=== PATIENT | male | born 2000 | race Caucasian/White ===

== ENCOUNTER 2018-05-19 20:58 | Emergency (ER) | payer BC ==
[~2018-05-19] VITALS: Ht 175.3 cm; Wt 68.2 kg
[2018-05-19 21:06] VITALS: Ht 175.3 cm; Wt 68.2 kg
[2018-05-19] MEDS ORDERED: CYCLOBENZAPRINE10 MG PO (22:53)
[2018-05-19] MEDS ORDERED: IBUPROFEN800 MG PO (22:53)
[2018-05-19] MEDS ORDERED: ACETAMINOPHEN500 M1 PO (22:53)
[2018-05-19 23:37] VITALS: BP 128/76
== END 2018-05-19 23:10 | disposition home or self-care (01) ==
LOC: D.ER 20:58
DX: S00.83XA Contusion of other part of head, initial encounter (principal); Y04.2XXA Assault by strike against or bumped into by another person, initial encounter; Y93.67 Activity, basketball; Y92.89 Other specified places as the place of occurrence of the external cause; F17.200 Nicotine dependence, unspecified, uncomplicated